=== PATIENT | male | born 1940 | race Two or more races ===

== ENCOUNTER 2019-12-26 09:58 | Inpatient (IN) | payer OTHER ==
[~2019-12-26] VITALS: Ht 182.9 cm; Wt 86.2 kg
[~2019-12-26 09:58] MED LIST: COZAAR50 MG PO; GLUCOSAMINE-CH1 EAC8 PO; METHOCARBAMOL500 MG PO; NABUMETONE500 MG PO; PERCOCET 5/3251 TAB PO; RYBIX ODT50 MG PO; TOPROL XL50 M1 PO
[2020-01-04] MEDS ORDERED: COLACE100 MG PO (07:35)
[2020-01-04] MEDS ORDERED: PERCOCET 5-3251 EACH PO (07:36)
== END 2020-01-05 10:24 | disposition home or self-care (01) | DRG 454 ==
LOC: ADM 12-27 12:45 → SURH 01-03 10:00 → ADM 01-03 12:45 → EDSTATUS 01-03 12:45 → SURH 01-03 12:45 → SURG 01-04 05:18 → O/R 01-04 05:18 → SURH 01-04 10:00 → SURG 01-04 12:20 → SURH 01-04 12:45 → SURG 01-04 17:35
PROVIDERS: ADMIT Orthopaedic Surgery Orthopaedic Surgery of the Spine; ATTEND Orthopaedic Surgery Orthopaedic Surgery of the Spine
PROC: 0RG20K1 Fusion of 2 or more Cervical Vertebral Joints with Nonautologous Tissue Substitute, Posterior Approach, Posterior Column, Open Approach (ICD-10-PCS; 2020-01-04)
PROC: 0RG20A0 Fusion of 2 or more Cervical Vertebral Joints with Interbody Fusion Device, Anterior Approach, Anterior Column, Open Approach (ICD-10-PCS; principal; 2020-01-04 10:00)
DX: M48.02 Spinal stenosis, cervical region (principal); M50.01 Cervical disc disorder with myelopathy, high cervical region

== ENCOUNTER 2020-01-09 23:22 | Inpatient (IN) | payer OTHER ==
[~2020-01-09] VITALS: Ht 182.9 cm; Wt 83.9 kg
[~2020-01-09 23:22] MED LIST changes: +COLACE100 MG PO; +PERCOCET 5-3251 EACH PO
[2020-01-17] MEDS ORDERED: TOPROL XL50 M1 PO (07:39)
[2020-01-17] MEDS ORDERED: COZAAR50 MG PO ×2 (07:39→07:44)
[2020-01-17] MEDS ORDERED: CARDIZEM CD240 MG PO (07:40)
[2020-01-17] MEDS ORDERED: LASIX20 MG PO (07:40)
[2020-01-17] MEDS ORDERED: HALDOL DEC50 MG/1 ML IM (07:52)
[2020-01-17] MEDS ORDERED: BENADRYL ALLERG25 MG PO (07:52)
== END 2020-01-17 13:53 | DRG 179 ==
LOC: ER 23:22 → SEC-K 01-10 13:53 → SURH 01-11 10:45
PROVIDERS: ADMIT Internal Medicine; ATTEND Internal Medicine
PROC: BB24ZZZ Computerized Tomography (CT Scan) of Bilateral Lungs (ICD-10-PCS; principal; 2020-01-10)
PROC: 3E0F7GC Introduction of Other Therapeutic Substance into Respiratory Tract, Via Natural or Artificial Opening (ICD-10-PCS; 2020-01-10)
PROC: 4A12X4Z Monitoring of Cardiac Electrical Activity, External Approach (ICD-10-PCS; 2020-01-10)
PROC: 4A033R1 Measurement of Arterial Saturation, Peripheral, Percutaneous Approach (ICD-10-PCS; 2020-01-11)
DX: J69.0 Pneumonitis due to inhalation of food and vomit (principal); J10.00 Influenza due to other identified influenza virus with unspecified type of pneumonia; R09.02 Hypoxemia; I10 Essential (primary) hypertension; Z03.818 Encounter for observation for suspected exposure to other biological agents ruled out